=== PATIENT | male | born 1940 | race Caucasian/White ===

== ENCOUNTER 2017-11-22 08:24 | Outpatient (CLI) | payer MEDICARE ==
[~2017-11-22] VITALS: Ht 182.9 cm; Wt 90.0 kg
--- NOTE | ~2017-11-22 | OP ---
PATIENT NAME: NORRIS TIERNEY MEDICAL RECORD: [id number] :42 LOCATION:D.CAT ADMISSION DATE: SURGEON: BJ THAKUR MD DATE OF OPERATION: 11/22/2017 PROCEDURES: 1. PTCA with stent, left circumflex. 2. Intravascular ultrasound, left circumflex. 3. Left heart catheterization. 4. Selective coronary angiography. 5. Left ventriculogram. INDICATIONS: Angina and coronary artery disease. PROCEDURE IN DETAIL: After informed consent was obtained and after a detailed explanation of the risks, benefits as well as alternative therapies, the patient elected to proceed with angiogram and angioplasty. The right radial area was prepped and draped in normal sterile fashion. The right radial artery was cannulated via modified Seldinger technique with placement of 6-Albanian sheath. All catheters were exchanged through this sheath. FINDINGS: Left ventriculogram was performed in standard 30-degree LOCO view; reveals good cardiac wall motion throughout all segments, overall ejection fraction estimated at 60%. SELECTIVE CORONARY ANGIOGRAPHY: 1. Left main showed no significant angiographic disease. 2. Left anterior descending has previously placed stents. These are widely patent with no significant restenosis. No disease elsewise throughout the LAD or its branches. 3. Left circumflex has previously placed stent. Proximally, prior to this at the ostium, there is greater than 80% stenosis confirmed by intravascular ultrasound. 4. The right coronary has previously placed stents. There is 80% in-stent restenosis in the mid vessel. PTCA STENT OF THE LEFT CIRCUMFLEX: The stent used is a 3.5 x 8 mm [place]. Result was 0% residual stenosis. OVERALL IMPRESSION: Successful percutaneous transluminal coronary angioplasty with stent of the left circumflex ostium going from 80% initial stenosis to 0% residual. PLAN: Plan for PTCA stent of the RCA in the near future. TRANSINT:[id number] Voice Confirmation ID: [id number] DOCUMENT ID: [id number] OPERATIVE REPORT [id number] NORRIS TIERNEY JEFFREY MD at 1759 CC: [id number] DICTATION DATE: 11/22/17 1136 PREFITTER: 11/22/17 1332 DEP CLI 11/22/17 [place] [address]
--- NOTE | ~2017-11-22 | HEMODYNAMI ---
PATIENT:NORRIS TIERNEY MEDICAL RECORD: [id number] : 42 LOCATION:DBenCAT ADMISSION DATE: 11/22/17 Generatedon:11/22/201711:40 Patient name: NORRIS TIERNEY Patient #: [id number] SSN: : 1940 Date of study: 11/22/2017 Page: Of Hemodynamic Procedure Report Patient Data Patient Demographics Procedure consent was obtained First Name: NORRIS Gender: Male Last Name: KELSY : 1940 [facility] Initial: CASSIE Age: 77 year(s) Patient #: [id number] Race: Additional ID: [id number] Contact details [address]: [address] [place] [address] State: [place] City: [place] Zip code: [address] Past Medical History History of disease Date Diagnosis Comments CAD Allergies Allergen Reaction Date Comments Reported Other allergy 11/22/2017 Sulfa Admission Admission Data Admission Date: 11/22/2017 Admission Time: 8:24 Height (in.): 72 BSA: 2.13 (m2) Height (cm.): 182.88 BMI: 26.99 (kg/m2) Weight (lbs.): 199 Weight (kg.): 90.26 Procedure Procedure Types Cath Procedure Diagnostic Procedure [facility] w/Coronaries FFR/IVUS Intra-Coronary IVUS Initial PCI Procedure Coronary Stent Miscellaneous Procedures Moderate Sedation up to 15 minutes Procedure Description Procedure Date Procedure Date: 11/22/2017 Procedure Start Time: 11:19 Procedure End Time: 11:37 Procedure Staff Name Function Don Patel MD Performing Physician Jade Hidalgo RT Monitor Edna Cowan RT Scrub Phill Richard RN Nurse Procedure Data Cath Procedure Fluoroscopy Diagnostic fluoroscopy Total fluoroscopy Time: 5.8 time: 5.8 min min Diagnostic fluoroscopy Total fluoroscopy dose: 840 dose: 840 mGy mGy Contrast Material Contrast Material Type Amount (ml) Isovue 300 73 Entry Location Entry Primary Successful Side Size Upsize Upsize Entry Closure Loza ccessful Closure Location (Fr) 1 (Fr) 2 (Fr) Remarks Device Remarks Radial Right 6 Fr Mechanical tr band artery Short Compression Estimated blood loss: 10 ml Diagnostic catheters Device Type Used For End Catheter Placement DIAGNOSTIC [place] 110cm 5 Procedure Fr catheter ([id number]) DIAGNOSTIC [place] 110cm 5 Procedure Fr catheter ([id number]) Procedure Complications No complications Procedure Medications Medication Administration Route Dosage Oxygen NC 2 l/min Heparin Flush Bag added to field 2 bags (1000units/500ml NS) 0.9% NaCl I.V. 100 ml/hr Radial Cocktail added to field 1 syringe (Verapomil 2mg/Nitro 400mcg/Heparin 1500units) Fentanyl I.V. 100 mcg Versed I.V. 2 mg Fentanyl I.V. 100 mcg Versed I.V. 2 mg Radial Cocktail I.A. 1 syringe (Verapomil 2mg/Nitro 400mcg/Heparin 1500units) Heparin Bolus I.V. 4000 units Hemodynamics Rest BSA: 2.13 (m2) O2 Consumption: Estimated: 234.15 (ml/min) O2 Consumption indexed : Estimated:109.93 (ml/min/m) Heart Rate: 57 (bpm) Snapshots Pre Cath Intra NCS Post Cath Vital Signs Time Heart Resp SPO2 etCO2 NIBP (mmHg) Rhythm Pain Sedation Rate (ipm) (%) (mmHg) Status Level (bpm) 11:04:32 57 29 100 0 142/80(123) NSR 0 (11) 10(A) , No pain 11:08:46 58 16 99 0 151/79(138) NSR 0 (11) 10(A) , No pain 11:13:04 58 18 99 0 146/75(136) NSR 0 (11) 10(A) , No pain 11:17:21 64 18 100 0 148/77(132) NSR 0 (11) 10(A) , No pain 11:21:39 62 18 94 0 112/67(100) NSR 0 (11) 10(A) , No pain 11:25:47 60 16 95 0 113/67(89) NSR 0 (11) 9(A) , No pain 11:29:52 62 16 92 0 104/68(94) NSR 0 (11) 9(A) , No pain 11:33:56 66 17 94 0 102/64(90) NSR 0 (11) 9(A) , No pain 11:37:25 65 18 95 0 109/58(78) NSR 0 (11) 9(A) , No pain Medications Time Medication Route Dose Verified Delivered Reason Note s Effectiveness by by 11:05:19 Oxygen NC 2 l/min Don Pollock Per physician Amanda Richard RN 11:05:31 Heparin Flush added 2 bags Don Pollock used for Bag to Amanda Richard RN procedure (1000units/500ml field NS) 11:05:41 0.9% NaCl I.V. 100 Don Rodriguezy Per physician ml/hr Amanda Richard RN 11:05:49 Radial Cocktail added 1 Don Pollock used for (Verapomil to syringe Amanda Richard RN procedure 2mg/Nitro field 400mcg/Heparin 1500units) 11:18:51 Fentanyl I.V. 100 mcg Don Pollock for sedation Amanda Richard RN 11:18:57 Versed I.V. 2 mg Don Pollock for sedation Amanda Richard RN 11:23:01 Fentanyl I.V. 100 mcg Don Pollock for sedation Amanda Richard RN 11:23:05 Versed I.V. 2 mg Don Pollock for sedation Amanda Richard RN 11:24:48 Radial Cocktail I.A. 1 Don Ochoa for (Verapomil syringe Amanda Patel MD vasodilation 2mg/Nitro 400mcg/Heparin 1500units) 11:30:34 Heparin Bolus I.V. 4000 Don Pollock for units Amanda Richard RN anticoagulation Procedure Log Time Note 10:32:28 Phill Richard RN sent for patient. Start room use. 10:46:54 Patient Height : 72 inches 10:46:59 Patient Weight : 199 lbs 10:47:25 Diagnostic Cath status Elective 10:47:30 Time tracking: Regular hours 10:47:52 Plan of Care:Hemodynamics will remain stable., Cardiac rhythm will remain stable., Comfort level will be maintained., Respiratory function will remain adequate., Patient/ family verbilizes understanding of procedure., Procedure tolerated without complication., Recovers from procedure without complications.. 10:47:58 Patient received from Pre/Post Procedure Room to [facility] 2 Alert and oriented. Tansferred to table in Supine position. 10:55:43 Warm blankets applied, and luiz hugger turned on for patient comfort. 10:55:44 Correct patient and procedure confirmed by team. 10:55:45 Signed procedure consent form obtained from patient. 10:55:46 ECG and BP/O2 sat monitors applied to patient. 11:02:20 Vital chart was started 11:05:19 Oxygen 2 l/min NC was administered by Phill Richard RN; Per physician; 11:05:31 Heparin Flush Bag (1000units/500ml NS) 2 bags added to field was administered by Phill Richard RN; used for procedure; 11:05:41 0.9% NaCl 100 ml/hr I.V. was administered by Phill Richard RN; Per physician; 11:05:49 Radial Cocktail (Verapomil 2mg/Nitro 400mcg/Heparin 1500units) 1 syringe added to field was administered by Phill Richard RN; used for procedure; 11:07:18 Baseline sample Acquired. 11:07:22 Rhythm: sinus rhythm 11:07:24 Full Disclosure recording started 11:07:44 H&P Date Dictated: 11/05/2017 Within 30 days and on chart., H&P Addendum completed by physician on day of procedure. (MUST COMPLETE FOR ALL OUTPATIENTS). 11:07:54 Pre-procedure instructions explained to patient. 11:08:01 Family in waiting room. 11:08:04 Patient NPO since Midnight. 11:08:17 Patient allergic to Other allergySulfa 11:08:20 Is the patient allergic to Iodine/contrast media? No. 11:08:22 Was the patient premedicated? Yes 11:08:25 Is patient on blood thinner?Yes 11:08:28 ACC The patient was administered the following blood thiners within the last 24 hours: ACCPlavix 11:08:30 Patient diabetic? No. 11:08:39 Snore? Yes 11:08:41 Sleep apnea? No 11:08:43 Sticks out tongue? No 11:08:58 IV patent on arrival in left forearm with 0.9% NaCl at [facility]. 11:09:06 Lab results completed and on chart. 11:09:11 Right Radial & Right Groin area was prepped with chlora-prep and draped in sterile fashion 11:09:11 Alarms reviewed by R. N. 11:09:12 Sharps counted by scrub and verified by R.N. 11:09:13 Physician paged 11:09:26 Use device set Radial Dx or PCI 11:09:28 ACIST Syringe (14031) opened to sterile field. 11:09:29 Medline Cath Pack ([id number]) opened to sterile field. 11:09:29 Bag Decanter (2002S) opened to sterile field. 11:09:50 SHEATH 6FR Slender ([id number]) opened to sterile field. 11:09:54 DIAGNOSTIC WIRE .035 260cm J wire (042010) opened to sterile field. 11:09:55 ACIST Hand Control (68869) opened to sterile field. 11:09:56 ACIST Manifold (56040) opened to sterile field. 11:09:57 Tegaderm 4 x 4 (1626W) opened to sterile field. 11:09:57 MBrace Wrist Support ([id number]) opened to sterile field. 11:15:57 Physician arrived 11:15:58 --------ALL STOP TIME OUT------ 11:15:59 Final Timeout: patient, procedure, and site verified with staff and physician. All members of the team are in agreement. 11:16:01 Right Radial & Right Groin site verified by team. 11:16:08 Physical assessment completed. ASA score P 2 - A patient with mild systemic disease as per Don Patel MD. 11:16:12 Sedation plan: IV Moderate Sedation Medication:Versed, Fentanyl 11:18:18 Procedure started. 11:18:51 Fentanyl 100 mcg I.V. was administered by Phill Richard RN; for sedation; 11:18:57 Versed 2 mg I.V. was administered by Phill Richard RN; for sedation; 11:19:36 Local anesthetic to right radial artery with Lidocaine 2% by Don Patel MD.INITIAL ACCESS ONLY 11:21:47 A 6 Fr Short sheath was inserted into the Right Radial artery 11:22:58 A DIAGNOSTIC [place] 110cm 5 Fr catheter (801851) was advanced over the wire and used for Procedure. 11:23:01 Fentanyl 100 mcg I.V. was administered by Phill Richard RN; for sedation; 11:23:05 Versed 2 mg I.V. was administered by Phill Richard RN; for sedation; 11:24:19 GLIDE WIRE ANGLE 260cm (JD7208) opened to sterile field. 11:24:31 TORQUE DEVICE PLASTIC .038 ( TD01) opened to sterile field. 11:24:46 A DIAGNOSTIC [place] 110cm 5 Fr catheter (712871) was advanced over the wire and used for Procedure. 11:24:48 Radial Cocktail (Verapomil 2mg/Nitro 400mcg/Heparin 1500units) 1 syringe I.A. was administered by Don Patel MD; for vasodilation; 11:24:54 EF : 60 % 11:25:35 RCA angiography performed. 11:26:08 LCA angiography performed. 11:27:07 Catheter removed. 11:28:07 6 Fr XBLAD 3.5 guide catheter was inserted over the wire 11:28:23 ex support wire advanced. 11:28:52 CHOICE PT Extra Support 182cm wire ([id number]) opened to sterile field. 11:29:22 INFLATOR Merit BasixCompak (RV6930) opened to sterile field. 11:29:33 [place] IVUS Catheter (34749B) opened to sterile field. 11:30:34 Heparin Bolus 4000 units I.V. was administered by Phill Richard RN; for anticoagulation; 11:33:21 Inflation Number: 1 A SRIRAM RX 3.5 x 08 stent ([id number]) was prepped and advanced across the Prox CX. The stent was deployed at 17 MATTY for 0:10 (min:sec). 11:33:29 Wire removed. 11:33:32 Guide catheter removed. 11:33:44 TR BAND Standard (ISI32NEH) opened to sterile field. 11:34:06 Sheath removed intact; hemostasis achieved with Mechanical Compression to the Right Radial artery. 11:34:08 Procedure ended.(Physican Out) 11:35:15 Fluoroscopy time 05.80 minutes. 11:35:19 Fluoroscopy dose: 840 mGy 11:35:19 Flurop Dose total: 840 11:35:23 Contrast amount:Isovue 300 73ml. 11:35:25 Sharps counted by scrub and verified by R.N. 11:35:36 TR band inflated with 10cc of air. 11:35:37 Insertion/operative site no bleeding no hematoma. 11:35:43 Post Procedure Pulses reassessed and unchanged 11:35:47 Post-procedure physical assessment completed. ASA score P 2 - A patient with mild systemic disease as per Don Patel MD. 11:35:52 Post procedure rhythm: unchanged. 11:35:55 Estimated blood loss: 10 ml 11:35:57 Post procedure instruction explained to patient.Patient verbalizes understanding. 11:36:06 Procedure type changed to Cath procedure, Diagnostic procedure, LHC, LHC w/Coronaries, FFR/IVUS, Intra-Coronary IVUS Initial, PCI procedure, Coronary Stent, Miscellaneous Procedures, Moderate Sedation up to 15 minutes 11:36:23 Procedure and supply charges have been captured, reviewed, submitted and are correct. 11:37:48 Procedure Complication : No complications 11:37:51 Vital chart was stopped 11:37:51 See physician's report for complete and final results. 11:37:53 Report given to Pre/Post Procedure Room. 11:37:57 Patient transfered to Pre/Post Procedure Room with Stretcher. 11:37:59 Procedure ended. 11:37:59 Full Disclosure recording stopped 11:38:02 End room use (Document Last) 11:38:02 End room use (Document Last) 11:38:15 ACC-PCI Only Patient was given prescriptions, or instructed by Don Patel MD to start/continue the following medications upon discharge: Plavix Intervention Summary Intervention Notes Time ActionType Lesion and Equipment Used Action# Pressure Duration Attributes 11:33:21 Place stent Prox CX SRIRAM RX 3.5 x 1 17 00:10 08 stent ([id number]) Device Usage Item Name Manufacture Quantity Catalog Number Hospital Part Current M inimal Lot# / Charge Number Stock Stock Serial# Code ACIST Syringe Acist 1 36480 216916 379914 703355 2 0 (07445) Medical Systems Inc Medline Cath Cardinal 1 [id number] 546459 15296 711506 5 Pack Health ([id number]) Bag Decanter Microtek 1 911243 99026 848589 5 () Medical Inc. SHEATH 6FR Terumo 1 [id number] 422363 837893 101160 4 0 Slender ([id number]) DIAGNOSTIC St Ed 1 659689 774348 963356 061293 3 0 WIRE .035 260cm J wire (160591) ACIST Hand Acist 1 72081 961627 653426 933751 5 Control Medical (11419) Systems Inc ACIST Manifold Acist 1 88064 916548 550317 529271 5 (21331) Medical Systems Inc Tegaderm 4 x 4 3M 1 1626W 082497 188890 246711 5 (1626W) MBrace Wrist Advanced 1 140-0250-00 880719 52641 398227 5 Support Vascular ([id number]) Dynamics DIAGNOSTIC Terumo 2 40-8123 380177 974043 163867 5 [place] 110cm 5 Fr catheter (274463) GLIDE WIRE Terumo 1 ZM5649 913114 409927 159378 5 ANGLE 260cm (BK0617) TORQUE DEVICE [place] 1 TD01 297306 701254 752531 5 PLASTIC .038 ( Scientific TD01) CHOICE PT [place] 1 [id number] 690819 183512 133323 5 Extra Support Scientific 182cm wire ([id number]) INFLATOR Merit Merit 1 QJ1881 739761 964891 029047 1 5 [facility] (CF6640) [place]rape[place] 1 43851Y 102417 295695 854287 8 [place] IVUS Catheter (57444B) SRIRAM RX 3.5 x Medtronic 1 [id number] 943363 3412558 993869 5 [id number] 08 stent ([id number]) TR BAND Terumo 1 [id number] 104031 556714 340439 4 0 Standard ([id number]) Signature Audit [place] Stage Time Signature Unsigned Intra-Procedure 11/22/2017 Jade Hidalgo 11:40:16 AM RT(R) Signatures Monitor : Jade Hidalgo Signature : RT Date : Time : [facility] [address] [place] [address]
[~2017-11-22 08:24] MED LIST: BAYER CHEWABLE81 MG PO; CO Q-1030 MG PO; COZAAR50 MG PO; ECOTRIN325 MG PO; FINACEA GEL; FISH OIL 1,2001 CAP PO; HYDROCHLOROTHIA25 MG PO; HYDROCODON-ACE1 EAC7 PO; HYDROCODONE-APA1 TAB PO; LIPITOR80 MG PO; MILK THISTLE140 MG PO; MULTI-DAY VITAM1 TAB PO; NORCO 10/325 TA1 TA1 PO; NORITATE60 GM; ORACEA40 MG PO; PHOSLO667 MG; PLAVIX75 MG PO; PROTONIX20 MG PO; TOPROL XL50 MG PO; VITAMIN C250 MG PO; VITAMIN D2000 UNIT; VITAMIN D31000 UNI2 PO
[2017-11-22] MEDS ORDERED: NITROSTAT0.4 MG SL (09:08)
[2017-11-22] MEDS ORDERED: CO Q-1030 MG PO (09:11)
[2017-11-22] MEDS ORDERED: CITRACAL + D E1 EACH PO (09:12)
[2017-11-22 09:31] VITALS: BP 166/82; Ht 182.9 cm; Wt 90.0 kg
[2017-11-22 09:43] LABS: BASOPHILS 0.4 % (0-2); EOSINOPHILS 1.9 % (0-7); HEMATOCRIT 39.4 % (42.0-54.0); HEMOGLOBIN 13.5 g/dL (13.5-17.5); IMMATURE GRANULOCYTES 0.7 % (0-5); LYMPHOCYTES 27.8 % (15-50); MCH 32.8 pg (26.0-34.0); MCHC 34.3 g/dL (31.0-37.0); MCV 95.9 fL (80.0-100.0); MEAN PLATELET VOLUME 9.4 fL (7.4-10.4); MONOCYTES 9.3 % (2-11); NEUTROPHILS 59.9 % (40-80); RBC 4.11 10x6/uL (4.20-6.10); RDW 12.7 % (11.5-14.5); WBC 7.4 10x3/uL (4.8-10.8)
[2017-11-22 09:44] LABS: PLATELET COUNT 151 10x3/uL (130-400)
[2017-11-22 09:55] LABS: ANION GAP 12.2 mmol/L (8-16); CALCIUM 9.2 mg/dL (8.5-10.1); CARBON DIOXIDE 31.2 mmol/L (21.0-32.0); CREATININE - SERUM 1.1 mg/dL (0.6-1.3); POTASSIUM - SERUM 4.4 mmol/L (3.5-5.1)
== END 2017-11-22 15:30 | disposition home or self-care (01) ==
LOC: D.CATH 08:24
PROVIDERS: Internal Medicine Interventional Cardiology
DX: I25.119 Atherosclerotic heart disease of native coronary artery with unspecified angina pectoris (principal); I10 Essential (primary) hypertension; E78.5 Hyperlipidemia, unspecified; Z01.812 Encounter for preprocedural laboratory examination
CPT/HCPCS: 93458; 92978; C9600

== ENCOUNTER 2017-11-26 08:56 | Outpatient (CLI) | payer MEDICARE ==
[~2017-11-26] VITALS: Ht 182.9 cm; Wt 90.0 kg
--- NOTE | ~2017-11-26 | HEMODYNAMI ---
PATIENT:NORRIS TIERNEY MEDICAL RECORD: [id number] : 42 LOCATION:[facility] ADMISSION DATE: 11/26/17 Generatedon:11/26/201712:05 Patient name: NORRIS TIERNEY Patient #: [id number] : 1940 Date of study: 11/26/2017 Page: Of Hemodynamic Procedure Report Patient Data Patient Demographics Procedure consent was obtained First Name: NORRIS Gender: Male Last Name: KELSY : 1940 Middle Initial: CASSIE Age: 77 year(s) Patient #: [id number] Race: SSN: [id number] Additional ID: [id number] Contact details [address]: [address] [place] [address] State: [place] City: [place] Zip code: [address] Past Medical History History of disease Date Diagnosis Comments CAD Allergies Allergen Reaction Date Comments Reported Other allergy 11/22/2017 Sulfa Admission Admission Data Admission Date: 11/26/2017 Admission Time: 8:56 Arrival Date: 11/26/2017 Arrival Time: 11:30 Admit Source: Other Insurance Payor: Private health insurance Height (in.): 72 BSA: 2.13 (m2) Height (cm.): 182.88 BMI: 26.99 (kg/m2) Weight (lbs.): 199 Weight (kg.): 90.26 Lab Results Lab Result Date: 11/26/2017 Lab Result Time: 0:00 Biochemistry Name Units Result Min Max BUN mg/dl 14 --(--*-)-- 7 18 Creatinine mg/dl 0.9 --(-*--)-- 0.6 1.3 CBC Name Units Result Min Max Hemoglobin g/dl 14 --(*---)-- 13.5 17.5 Procedure Procedure Types Cath Procedure PCI Procedure Coronary Stent Coronary Stent Initial Miscellaneous Procedures Moderate Sedation up to 15 minutes Procedure Description Procedure Date Procedure Date: 11/26/2017 Procedure Start Time: 11:52 Procedure End Time: 12:05 Procedure Staff Name Function Don Patel MD Performing Physician Bobbi Gallo RT Monitor Edna Cowan RT Scrub Taylor Todd RN Nurse Phill Richard RN Carbonating Stone Cleaner Procedure Data Cath Procedure Fluoroscopy Diagnostic fluoroscopy Total fluoroscopy Time: 3 time: 3 min min Diagnostic fluoroscopy Total fluoroscopy dose: 206 dose: 206 mGy mGy Contrast Material Contrast Material Type Amount (ml) Isovue 300 36 Entry Location Entry Primary Successful Side Size Upsize Upsize Entry Closure Loza ccessful Closure Location (Fr) 1 (Fr) 2 (Fr) Remarks Device Remarks Radial Right 6 Fr Mechanical artery Short Compression Estimated blood loss: 10 ml Procedure Complications No complications Procedure Medications Medication Administration Route Dosage 0.9% NaCl I.V. 100 ml/hr Oxygen NC 2 l/min Lidocaine 2% added to field 20 Heparin Flush Bag added to field 2 bags (1000units/500ml NS) Radial Cocktail added to field 1 syringe (Verapomil 2mg/Nitro 400mcg/Heparin 1500units) Fentanyl I.V. 50 mcg Versed I.V. 1 mg Versed I.V. 1 mg Heparin Bolus I.V. 4000 units Fentanyl I.V. 50 mcg Fentanyl I.V. 100 mcg Hemodynamics Rest BSA: 2.13 (m2) HGB: 14 (g/dl) O2 Consumption: Estimated: 231.09 (ml/min) O2 Cons umption indexed: Estimated:108.49 (ml/min/m) Heart Rate: 53 (bpm) Snapshots Pre Cath Intra NCS Post Cath Vital Signs Time Heart Resp SPO2 etCO2 NIBP (mmHg) Rhythm Pain Sedation Rate (ipm) (%) (mmHg) Status Level (bpm) 11:39:10 58 15 100 0 129/69(105) NSR 0 (11) 10(A) , No pain 11:43:22 58 16 99 0 127/70(98) NSR 0 (11) 10(A) , No pain 11:47:32 56 16 98 0 117/74(88) NSR 0 (11) 10(A) , No pain 11:51:41 57 18 97 0 126/64(89) NSR 0 (11) 10(A) , No pain 11:55:56 57 16 98 1.5 99/57(73) NSR 0 (11) 9(A) , No pain 11:59:58 57 18 95 0 95/65(82) NSR 0 (11) 9(A) , No pain 12:04:46 59 18 96 2.2 118/67(91) NSR 0 (11) 10(A) , No pain Medications Time Medication Route Dose Verified Delivered Reason Note s Effectiveness by by 11:23:42 0.9% NaCl I.V. 100 Don Zaratey used for ml/hr Amanda Todd RN procedure 11:23:51 Oxygen NC 2 l/min Don Vazquez Per physician Amanda Todd RN 11:23:57 Lidocaine 2% added 20ml Donester Ochoa for local to vial Amanda Patel MD anesthetic field 11:24:03 Heparin Flush added 2 bags Don Ochoa used for Bag to Amanda Patel MD procedure (1000units/500ml field NS) 11:41:19 Radial Cocktail added 1 Donester Ochoa for (Verapomil to syringe Amanda Patel MD vasodilation 2mg/Nitro field 400mcg/Heparin 1500units) 11:51:17 Fentanyl I.V. 50 mcg Don Vazquez for sedation Amanda Todd RN 11:51:26 Versed I.V. 1 mg Don Berryfany for sedation Amanda Todd RN 11:54:15 Heparin Bolus I.V. 4000 Don Taylor for veri fied units Amanda Todd RN anticoagulation by 11:54:35 Versed I.V. 1 mg Don Berryfany for sedation Amanda Todd RN 11:54:51 Fentanyl I.V. 50 mcg Don Vazquez for sedation Amanda Todd RN 11:56:07 Fentanyl I.V. 100 mcg Don Berryfany for sedation Amanda Todd RN Procedure Log Time Note 11:20:02 Informed consent obtained and on chart 11:20:25 Patient Height : 72 inches 11:20:26 Patient Weight : 199 lbs 11:20:28 Admit Source: Other 11:20:33 Arrival Date: 11/26/2017 11:30:00 AM 11:20:39 Insurance Payor : Private health insurance 11:22:22 Lab Result : BUN 14 mg/dl 11:22:22 Lab Result : Hemoglobin 14 g/dl 11:22:22 Lab Result : Creatinine 0.9 mg/dl 11:22:25 Diagnostic Cath Status : Elective 11:23:00 Phill Richard RN sent for patient. Start room use. 11:23:01 Time tracking: Regular hours 11:23:05 Plan of Care:Hemodynamics will remain stable., Cardiac rhythm will remain stable., Comfort level will be maintained., Respiratory function will remain adequate., Patient/ family verbilizes understanding of procedure., Procedure tolerated without complication., Recovers from procedure without complications.. 11:23:42 0.9% NaCl 100 ml/hr I.V. was administered by Taylor Todd RN; used for procedure; 11:23:51 Oxygen 2 l/min NC was administered by Taylor Todd RN; Per physician; 11::57 Lidocaine 2% 20ml vial added to field was administered by Don Patel MD; for local anesthetic; 11:24:03 Heparin Flush Bag (1000units/500ml NS) 2 bags added to field was administered by Don Patel MD; used for procedure; 11:28:57 Patient received from Pre/Post Procedure Room to CCL 2 Alert and oriented. Tansferred to table in Supine position. 11:28:58 Warm blankets applied, and luiz hugger turned on for patient comfort. 11:28:58 Correct patient and procedure confirmed by team. 11:28:59 ECG and BP/O2 sat monitors applied to patient. 11:37:57 Vital chart was started 11:41:02 Rhythm: sinus bradycardia 11:41:03 Full Disclosure recording started 11:41:09 H&P Date Dictated: 11/26/2017 Within 30 days and on chart.. 11:41:10 Pre-procedure instructions explained to patient. 11:41:10 Pre-op teaching completed and patient verbalized understanding. 11:41:11 Family in waiting room. 11:41:13 Patient NPO since Midnight. 11:41:19 Radial Cocktail (Verapomil 2mg/Nitro 400mcg/Heparin 1500units) 1 syringe added to field was administered by Don Patel MD; for vasodilation; 11:41:20 Is the patient allergic to Iodine/contrast media? No. 11:41:21 Is patient on blood thinner?Yes 11:41:23 ACC The patient was administered the following blood thiners within the last 24 hours: ACCPlavix 11:41:25 Patient diabetic? No. 11:41:29 Previous problem with sedation/anesthesia? No ? 11:41:30 Snore? Yes 11:41:31 Sleep apnea? No 11:41:32 Deviated septum? No 11:41:32 Opens mouth fully? Yes 11:41:33 Sticks out tongue? Yes 11:41:36 Airway obstruction? No ? 11:41:39 Dentures? Yes OUT 11:41:42 Pre procedure: right dorsailis pedis pulse 2+ Normal; easily identifiable; not easily obliterated 11:41:44 Modified Toy's test Ulnar < 7 seconds 11:41:46 Patient pain scale 0/10 ?. 11:42:01 IV patent on arrival in left hand with 0.9% NaCl at [facility]. 11:42:04 Lab results completed and on chart. 11:42:10 Right Radial & Right Groin area was prepped with chlora-prep and draped in sterile fashion 11:42:11 Alarms reviewed by R. N. 11:42:11 Sharps counted by scrub and verified by R.N. 11:42:15 Use device set Radial Dx or PCI 11:42:16 ACIST Syringe (42009) opened to sterile field. 11:42:17 Medline Cath Pack ([id number]) opened to sterile field. 11:42:18 Bag Decanter (2002) opened to sterile field. 11:42:18 SHEATH 6FR Slender ([id number]) opened to sterile field. 11:42:20 DIAGNOSTIC WIRE .035 260cm J wire (542120) opened to sterile field. 11:42:20 ACIST Hand Control (29371) opened to sterile field. 11:42:21 ACIST Manifold (17107) opened to sterile field. 11:42:22 Tegaderm 4 x 4 (1626W) opened to sterile field. 11:42:23 MBrace Wrist Support ([id number]) opened to sterile field. 11:42:30 Use device set TAUTH PCI 11:43:11 Baseline sample Acquired. 11:43:15 Physician paged 11:44:58 Zero performed for pressure channel P1 11:50:46 Final Timeout: patient, procedure, and site verified with staff and physician. All members of the team are in agreement. 11:50:48 Right Radial & Right Groin site verified by team. 11:50:51 Physical assessment completed. ASA score P 2 - A patient with mild systemic disease as per Don Patel MD. 11:50:54 Sedation plan: IV Moderate Sedation Medication:Versed, Fentanyl 11:51:17 Fentanyl 50 mcg I.V. was administered by Taylor Todd RN; for sedation; 11:51:26 Versed 1 mg I.V. was administered by Taylor Todd RN; for sedation; 11:52:49 Procedure started. 11:52:57 Local anesthetic to right radial artery with Lidocaine 2% by Don Patel MD.INITIAL ACCESS ONLY 11:53:37 A 6 Fr Short sheath was inserted into the Right Radial artery 11:53:56 GUIDE 6FR AR 2.0 catheter ([id number]) opened to sterile field. 11:54:14 CHOICE PT Extra Support 182cm wire ([id number]) opened to sterile field. 11:54:15 Heparin Bolus 4000 units I.V. was administered by Taylor Todd RN; for anticoagulation; verified by 11:54:35 Versed 1 mg I.V. was administered by Taylor Todd RN; for sedation; 11:54:41 6 Fr AR 2.0 guide catheter was inserted over the wire 11:54:51 Fentanyl 50 mcg I.V. was administered by Taylor Todd RN; for sedation; 11:55:38 GLIDE WIRE ANGLE 260cm (VD4187) opened to sterile field. 11:56:02 [place] wire advanced. 11:56:07 Fentanyl 100 mcg I.V. was administered by Taylor Todd RN; for sedation; 11:56:47 Wire removed. 11:57:49 Choice PT ES wire advanced. 11:59:32 Inflation Number: 1 A SRIRAM RX 4.0 x 22 stent ([id number]) was prepped and advanced across the Mid RCA. The stent was deployed at 21 MATTY for 0:12 (min:sec). 11:59:54 Inflation number: 2 The stent balloon was then re-inflated across the Mid RCA to 19 MATTY for 0:07 (min:sec). 12:00:26 Stent catheter was removed intact over wire. 12:00:27 Wire removed. 12:00:28 Guide catheter removed. 12:00:40 Sheath removed intact; hemostasis achieved with Mechanical Compression to the Right Radial artery. 12:00:43 Procedure ended.(Physican Out) 12:00:51 Fluoroscopy time 03.00 minutes. 12:00:54 Flurop Dose total: 206 12:00:54 Fluoroscopy dose: 206 mGy 12:00:57 Contrast amount:Isovue 300 36ml. 12:01:01 Sharps counted by scrub and verified by R.N. 12:01:02 Insertion/operative site no bleeding no hematoma. 12:01:11 Post right radial artery:stable, clean and dry 12:01:13 Post Procedure Pulses reassessed and unchanged 12:01:15 Post-procedure physical assessment completed. ASA score P 2 - A patient with mild systemic disease as per Don Patel MD. 12:01:17 Post procedure rhythm: unchanged. 12:01:21 Estimated blood loss: 10 ml 12:01:22 Post procedure instruction explained to patient.Patient verbalizes understanding. 12:01:22 Patient needs reinforcement of post procedure teaching. 12:01:39 Procedure type changed to Cath procedure, PCI procedure, Coronary Stent, Coronary Stent Initial, Miscellaneous Procedures, Moderate Sedation up to 15 minutes 12:01:44 Procedure Complication : No complications 12:01:46 See physician's report for complete and final results. 12:01:56 TR BAND Standard ([id number]) opened to sterile field. 12:02:17 INFLATOR Merit BasixCompak (SD6599) opened to sterile field. 12:03:35 Procedure and supply charges have been captured, reviewed, submitted and are correct. 12:04:46 TR band inflated with 10cc of air. 12:04:50 Vital chart was stopped 12:04:52 Report given to Pre/Post Procedure Room. 12:04:54 Patient transfered to Pre/Post Procedure Room with Stretcher. 12:05:02 Procedure ended. 12:05:02 Full Disclosure recording stopped 12:05:07 End room use (Document Last) Intervention Summary Intervention Notes Time ActionType Lesion and Equipment Used Action# Pressure Duration Attributes 11:59:32 Place stent Mid RCA SRIRAM RX 4.0 x 1 21 00:12 22 stent ([id number]) 11:59:54 Reinflate Mid RCA RSIRAM RX 4.0 x 2 19 00:07 stent 22 stent balloon ([id number]) Device Usage Item Name Manufacture Quantity Catalog Number Hospital Part Current M inimal Lot# / Charge Number Stock Stock Serial# Code ACIST Syringe Acist 1 24565 215389 390081 142273 2 0 (41660) Medical Systems Inc Medline Cath Cardinal 1 [id number] 864728 67675 592537 5 Pack Health ([id number]) Bag Decanter Microtek 1 2001S 035004 29999 817616 5 () Medical Inc. SHEATH 6FR Terumo 1 [id number] 556893 799586 533509 4 0 Slender ([id number]) DIAGNOSTIC St Ed 1 611685 969695 742528 707353 3 0 WIRE .035 260cm J wire (752184) ACIST Hand Acist 1 69154 344377 719799 401609 5 Control Medical (27416) Systems Inc ACIST Manifold Acist 1 90062 621669 605051 600056 5 (59497) Medical Systems Inc Tegaderm 4 x 4 3M 1 1626W 735474 074994 574679 5 (1626W) MBrace Wrist Advanced 1 140-0250-00 498395 49734 059242 5 Support Vascular ([id number]) Dynamics GUIDE 6FR AR Medtronic 1 [id number] 690350 76159 489714 1 2.0 catheter ([id number]) CHOICE PT [place] 1 [id number] 662685 570751 806088 5 Extra Support Scientific 182cm wire ([id number]) GLIDE WIRE Terumo 1 HK6428 386883 475236 802266 5 ANGLE 260cm (AY4251) SRIRAM RX 4.0 x Medtronic 1 [id number] 479474 0299430 351207 5 [id number] 22 stent ([id number]) TR BAND Terumo 1 [id number] 710509 755987 908142 4 0 Standard ([id number]) INFLATOR Merit Merit 1 [id number] 729307 446653 848687 1 5 [employer] [facility] ([id number]) Signature Audit [place] Stage Time Signature Unsigned Intra-Procedure 11/26/2017 Bobbi 12:05:18 PM Counts RT(R) Signatures Monitor : Bobbi Signature : Counts RT Date : Time : [place] [id number] [place] [address]
--- NOTE | ~2017-11-26 | OP ---
PATIENT NAME: NORRIS TIERNEY MEDICAL RECORD: [id number] :42 LOCATION:[facility] ADMISSION DATE: SURGEON: BJ THAKUR MD DATE OF OPERATION: 11/26/2017 PROCEDURES: 1. PTCA stent to RCA. 2. Selective coronary angiography. INDICATION: Angina and coronary artery disease. PROCEDURE IN DETAIL: After informed consent was obtained and after detailed explanation of risks, benefits as well as alternative therapies, the patient elected to proceed with angiogram and angioplasty. The right radial area was prepped and draped in normal sterile fashion. The right radial artery was cannulated via modified Seldinger technique with placement of 6-[place] sheath. All catheters exchanged through this sheath. FINDINGS: The right coronary artery has 80% in-stent restenosis in the mid vessel. This was addressed with a 4.0 x 22 mm Joce stent taken to 21 atmospheres. Result was 0% residual stenosis. OVERALL IMPRESSION: Successful percutaneous transluminal coronary angioplasty stent of the right coronary artery going from 80% initial stenosis to 0% residual. TRANSINT:[id number] Voice Confirmation ID: [id number] DOCUMENT ID: [id number] BJ THAKUR MD at 1800 CC: [id number] DICTATION DATE: 11/26/17 1203 PROCESS TECH: 11/26/17 1303 DEP CLI 11/26/[address] [id number]
[~2017-11-26 08:56] MED LIST changes: +CITRACAL + D E1 EACH PO; +NITROSTAT0.4 MG SL
[2017-11-26 10:16] VITALS: BP 141/70; Ht 182.9 cm; Wt 90.0 kg
[2017-11-26 10:16] LABS: BASOPHILS 0.2 % (0-2); EOSINOPHILS 1.5 % (0-7); HEMATOCRIT 39.8 % (42.0-54.0); IMMATURE GRANULOCYTES 0.7 % (0-5); LYMPHOCYTES 18.6 % (15-50); MCH 33.6 pg (26.0-34.0); MCHC 35.2 g/dL (31.0-37.0); MCV 95.4 fL (80.0-100.0); MEAN PLATELET VOLUME 9.3 fL (7.4-10.4); MONOCYTES 12.5 % (2-11); NEUTROPHILS 66.5 % (40-80); PLATELET COUNT 150 10x3/uL (130-400); RBC 4.17 10x6/uL (4.20-6.10); RDW 12.8 % (11.5-14.5); WBC 8.7 10x3/uL (4.8-10.8)
[2017-11-26 10:24] LABS: CALC OSMOLALITY 281 mosm/kg (275-300); CALCIUM 9.1 mg/dL (8.5-10.1); CARBON DIOXIDE 29.3 mmol/L (21.0-32.0); CHLORIDE - SERUM 103 mmol/L (98-107); CREATININE - SERUM 0.9 mg/dL (0.6-1.3); GLUCOSE 99 mg/dL (74-106); POTASSIUM - SERUM 4.2 mmol/L (3.5-5.1); SODIUM 141 mmol/L (136-145); UREA NITROGEN 14 mg/dL (7-18); eGFR NON AFRICAN AMERICAN 87 mL/min (90-120)
== END 2017-11-26 16:00 | disposition home or self-care (01) ==
LOC: D.CATH 08:56
PROVIDERS: Internal Medicine Interventional Cardiology
DX: I25.119 Atherosclerotic heart disease of native coronary artery with unspecified angina pectoris (principal); T82.855A Stenosis of coronary artery stent, initial encounter; Z01.812 Encounter for preprocedural laboratory examination

== ENCOUNTER 2018-06-27 08:59 | Outpatient (CLI) | payer MEDICARE ==
[~2018-06-27] VITALS: Ht 182.9 cm; Wt 91.8 kg
--- NOTE | ~2018-06-27 | HEMODYNAMI ---
PATIENT:NORRIS TIERNEY MEDICAL RECORD: [id number] : 42 LOCATION:[facility] ADMISSION DATE: 06/27/18 Generatedon:06/27/201813:14 Patient name: NORRIS TIERNEY Patient #: [id number] : 1940 Date of study: 06/27/2018 Page: Of Hemodynamic Procedure Report Patient Data Patient Demographics Procedure consent was obtained First Name: NORRIS Gender: Male Last Name: KELSY : 1940 Middle Initial: CASSIE Age: 78 year(s) Patient #: [id number] Race: SSN: [id number] Additional ID: [id number] Contact details [address]: [address] [place] [address] State: [place] City: [place] Zip code: [address] Past Medical History History of disease Date Diagnosis Comments CAD Allergies Allergen Reaction Date Comments Reported Other allergy 11/22/2017 Sulfa Sulfa drugs 06/27/2018 Admission Admission Data Admission Date: 06/27/2018 Admission Time: 8:59 Height (in.): 6 BSA: 0.36 (m2) Height (cm.): 15.24 BMI: 4159.83 (kg/m2) Weight (lbs.): 213 Weight (kg.): 96.62 Lab Results Lab Result Date: 06/27/2018 Lab Result Time: 0:00 Biochemistry Name Units Result Min Max BUN mg/dl 15 --(--*-)-- 7 18 Creatinine mg/dl 0.8 --(-*--)-- 0.6 1.3 CBC Name Units Result Min Max Hemoglobin g/dl 13.2 -*(----)-- 13.5 17.5 Procedure Procedure Types Cath Procedure Diagnostic Procedure LHC LHC w/Coronaries Procedure Description Procedure Date Procedure Date: 06/27/2018 Procedure Start Time: 13:03 Procedure End Time: 13:14 Procedure Staff Name Function Don Patel MD Performing Physician Bridgett Brantley RT Monitor Bobbi Gallo RT Scrub Phill Richard RN Nurse Cassie Guthrie RT Wheat Combine Driver Procedure Data Cath Procedure Fluoroscopy Diagnostic fluoroscopy Total fluoroscopy Time: 1.7 time: 1.7 min min Diagnostic fluoroscopy Total fluoroscopy dose: 629 dose: 629 mGy mGy Contrast Material Contrast Material Type Amount (ml) Isovue 300 58 Entry Location Entry Primary Successful Side Size Upsize Upsize Entry Closure Loza ccessful Closure Location (Fr) 1 (Fr) 2 (Fr) Remarks Device Remarks Radial Right 6 Fr Mechanical artery Short Compression Estimated blood loss: 5 ml Diagnostic catheters Device Type Used For End Catheter Placement DIAGNOSTIC [place] 110cm 5 Procedure Fr catheter ([id number]) Procedure Complications No complications Procedure Medications Medication Administration Route Dosage Oxygen etCO2 Nasal cannula 2 l/min Heparin Flush Bag added to field 2 bags (1000units/500ml NS) 0.9% NaCl I.V. 100 ml/hr Radial Cocktail added to field 1 syringe (Verapomil 2mg/Nitro 400mcg/Heparin 1500units) Fentanyl I.V. 50 mcg Versed I.V. 1 mg Fentanyl I.V. 50 mcg Versed I.V. 1 mg Fentanyl I.V. 50 mcg Versed I.V. 1 mg Radial Cocktail I.A. 1 syringe (Verapomil 2mg/Nitro 400mcg/Heparin 1500units) Fentanyl I.V. 50 mcg Versed I.V. 1 mg Hemodynamics Rest BSA: 0.36 (m2) HGB: 13.2 (g/dl) O2 Consumption: Estimated: 39.81 (ml/min) O2 Con sumption indexed: Estimated:110.58 (ml/min/m) Heart Rate: 59 (bpm) Snapshots Pre Cath Intra NCS Post Cath Vital Signs Time Heart Resp SPO2 etCO2 NIBP (mmHg) Rhythm Pain Sedation Rate (ipm) (%) (mmHg) Status Level (bpm) 12:32:46 55 16 97 0 151/75(128) NSR 0 (11) 10(A) , No pain 12:37:27 53 16 96 0 151/77(129) NSR 0 (11) 10(A) , No pain 12:42:07 59 17 95 35.3 133/78(104) NSR 0 (11) 10(A) , No pain 12:46:46 59 16 98 33.8 145/75(109) NSR 0 (11) 10(A) , No pain 12:51:24 62 16 92 33.5 125/67(105) NSR 0 (11) 10(A) , No pain 12:56:03 57 16 93 32.7 123/67(89) NSR 0 (11) 10(A) , No pain 13:00:39 53 16 97 30.8 126/69(105) NSR 0 (11) 10(A) , No pain 13:05:16 60 16 97 6 119/74(89) NSR 0 (11) 9(A) , No pain 13:09:54 64 17 88 24 97/60(84) NSR 0 (11) 9(A) , No pain 13:13:05 64 10 90 19.5 108/65(87) NSR 0 (11) 10(A) , No pain Medications Time Medication Route Dose Verified Delivered Reason Notes Effectiveness by by 12:37:26 Oxygen etCO2 2 l/min Don Pollock Per Nasal Amanda Richard RN physician cannula 12:37:33 Heparin Flush added 2 bags Don Phill used for Bag to Amanda Richard RN procedure (1000units/500ml field NS) 12:37:43 0.9% NaCl I.V. 100 Don Phill Per ml/hr Amanda Richard RN physician 12:37:54 Radial Cocktail added 1 Don Phill used for (Verapomil to syringe Amanda Richard RN procedure 2mg/Nitro field 400mcg/Heparin 1500units) 12:58:43 Fentanyl I.V. 50 mcg Don Phill for sedation Amanda Richard RN 12:58:50 Versed I.V. 1 mg Don Phill for sedation Amanda Richard RN 13:01:06 Fentanyl I.V. 50 mcg Don Phill for sedation Amanda Richard RN 13:01:11 Versed I.V. 1 mg Don Phill for sedation Amanda Richard RN 13:05:06 Fentanyl I.V. 50 mcg Don Phill for sedation Amanda Richard RN 13:05:10 Versed I.V. 1 mg Don Phill for sedation Amanda Richard RN 13:05:22 Radial Cocktail I.A. 1 Don Ochoa for (Verapomil syringe Amanda Patel MD vasodilation 2mg/Nitro 400mcg/Heparin 1500units) 13:08:27 Fentanyl I.V. 50 mcg Don Pollock for sedation Amanda Richard RN 13:08:30 Versed I.V. 1 mg Don Pollock for sedation Amanda Richard RN Procedure Log Time Note 11:34:09 Time tracking: Regular hours (M-F 7:00 - 5:00) 11:34:12 Plan of Care:Hemodynamics will remain stable., Cardiac rhythm will remain stable., Comfort level will be maintained., Respiratory function will remain adequate., Patient/ family verbilizes understanding of procedure., Procedure tolerated without complication., Recovers from procedure without complications.. 11:34:13 Signed procedure consent form obtained from patient. 11:36:34 H&P Date Dictated: 06/02/2018 Within 30 days and on chart., H&P Addendum completed by physician on day of procedure. (MUST COMPLETE FOR ALL OUTPATIENTS). 11:36:42 Patient allergic to Sulfa drugs 11:38:59 Lab Result : BUN 15 mg/dl 11:38:59 Lab Result : Hemoglobin 13.2 g/dl 11:38:59 Lab Result : Creatinine 0.8 mg/dl 12:03:59 Cassie DRAKE(R) sent for patient. Start room use. 12:05:20 Patient Weight : 213 lbs 12:05:24 Patient Height : 6 inches 12:25:15 Patient received from Pre/Post Procedure Room to CCL 1 Alert and oriented. Tansferred to table in Supine position. 12:25:17 Warm blankets applied, and luiz hugger turned on for patient comfort. 12:25:17 Correct patient and procedure confirmed by team. 12:25:18 ECG and BP/O2 sat monitors applied to patient. 12:25:19 Full Disclosure recording started 12:31:57 Vital chart was started 12:37:26 Oxygen 2 l/min etCO2 Nasal cannula was administered by Phill Richard RN; Per physician; 12:37:33 Heparin Flush Bag (1000units/500ml NS) 2 bags added to field was administered by Phill Richard RN; used for procedure; 12:37:43 0.9% NaCl 100 ml/hr I.V. was administered by Phill Richard RN; Per physician; 12:37:54 Radial Cocktail (Verapomil 2mg/Nitro 400mcg/Heparin 1500units) 1 syringe added to field was administered by Phill Richard RN; used for procedure; 12:37:54 Pre-procedure instructions explained to patient. 12:37:55 Pre-op teaching completed and patient verbalized understanding. 12:37:57 Family in patients room. 12:37:59 Patient NPO since Midnight. 12:38:00 Is the patient allergic to Iodine/contrast media? No. 12:38:05 Is patient on blood thinner?Unknown 12:38:07 Patient diabetic? No. 12:38:11 Previous problem with sedation/anesthesia? No ? 12:38:14 Snore? Yes 12:38:15 Sleep apnea? No 12:38:17 Deviated septum? No 12:38:23 Opens mouth fully? Yes 12:38:24 Sticks out tongue? Yes 12:38:28 Airway obstruction? No ? 12:38:41 Dentures? Yes OUT 12:38:44 Modified Toy's test Ulnar < 7 seconds 12:38:47 Patient pain scale 0/10 ?. 12:38:50 IV patent on arrival in left hand with 0.9% NaCl at [facility]. 12:39:13 Lab results completed and on chart. 12:39:15 Right Radial & Right Groin area was prepped with chlora-prep and draped in sterile fashion 12:39:16 Alarms reviewed by R. N. 12:39:17 Sharps counted by scrub and verified by R.N. 12:44:10 Use device set Radial Dx or PCI 12:44:11 ACIST Syringe (76022) opened to sterile field. 12:44:12 Bag Decanter () opened to sterile field. 12:44:13 ACIST Hand Control (88519) opened to sterile field. 12:44:14 ACIST Manifold (54075) opened to sterile field. 12:44:15 Tegaderm 4 x 4 (1626W) opened to sterile field. 12:44:18 Medline Cath Pack ([id number]) opened to sterile field. 12:44:18 DIAGNOSTIC WIRE .035 260cm J wire (942555) opened to sterile field. 12:44:19 SHEATH 6Fr Prelude Radial ([id number]) opened to sterile field. 12::56 Zero performed for pressure channel P1 12:45:06 Baseline sample Acquired. 12:45:12 Rhythm: sinus bradycardia 12:56:30 --------ALL STOP TIME OUT------ 12:56:30 Final Timeout: patient, procedure, and site verified with staff and physician. All members of the team are in agreement. 12:56:32 Right Radial & Right Groin site verified by team. 12:56:39 Physical assessment completed. ASA score P 2 - A patient with mild systemic disease as per Don Patel MD. 12:56:42 Sedation plan: IV Moderate Sedation Medication:Versed, Fentanyl 12:58:43 Fentanyl 50 mcg I.V. was administered by Phill Richard RN; for sedation; 12:58:50 Versed 1 mg I.V. was administered by Phill Richard RN; for sedation; 13:01:06 Fentanyl 50 mcg I.V. was administered by Phill Richard RN; for sedation; 13:01:11 Versed 1 mg I.V. was administered by Phill Richard RN; for sedation; 13:02:54 Procedure started. 13:03:18 Local anesthetic to right radial artery with Lidocaine 2% by Don Patel MD.INITIAL ACCESS ONLY 13:04:52 A 6 Fr Short sheath was inserted into the Right Radial artery 13:05:06 Fentanyl 50 mcg I.V. was administered by Phill Richard RN; for sedation; 13:05:10 Versed 1 mg I.V. was administered by Phill Richard RN; for sedation; 13:05:14 A DIAGNOSTIC [place] 110cm 5 Fr catheter (003886) was advanced over the wire and used for Procedure. 13:05:22 Radial Cocktail (Verapomil 2mg/Nitro 400mcg/Heparin 1500units) 1 syringe I.A. was administered by Don Patel MD; for vasodilation; 13:06:43 GLIDE WIRE ANGLE 260cm ([id number]) opened to sterile field. 13:07:15 LV gram done using LOCO 13::39 Injector settings: Ml/sec: 7, Volume: 15, 13:07:58 EF : 60 % 13:08:27 Fentanyl 50 mcg I.V. was administered by Phill Richard RN; for sedation; 13:08:30 Versed 1 mg I.V. was administered by Phill Richard RN; for sedation; 13:09:24 LCA angiography performed. 13:09:46 RCA angiography performed. 13:10:11 Catheter exchanged over wire. 13:10:58 Procedure ended.(Physican Out) 13:11:09 TR BAND Standard ([id number]) opened to sterile field. 13:11:19 Sheath removed intact; hemostasis achieved with Mechanical Compression to the Right Radial artery. 13:11:50 Fluoroscopy time 01.70 minutes. 13:11:54 Fluoroscopy dose: 629 mGy 13:11:54 Flurop Dose total: 629 13:11:59 Contrast amount:Isovue 300 58ml. 13:12:01 Sharps counted by scrub and verified by R.N. 13:12:23 TR band inflated with 10cc of air. 13:13:09 Post-procedure physical assessment completed. ASA score P 2 - A patient with mild systemic disease as per Don Patel MD. 13:13:14 Post procedure rhythm: sinus rhythm 13:13:15 Estimated blood loss: 5 ml 13:13:16 Post procedure instruction explained to patient.Patient verbalizes understanding. 13:13:17 Patient needs reinforcement of post procedure teaching. 13:13:59 Procedure and supply charges have been captured, reviewed, submitted and are correct. 13:14:01 Procedure Complication : No complications 13:14:03 Vital chart was stopped 13:14:05 Report given to Pre/Post Procedure Room. 13:14:07 Patient transfered to Pre/Post Procedure Room with Bed. 13:14:09 Procedure ended. 13:14:09 Full Disclosure recording stopped 13:14:12 End room use (Document Last) Device Usage Item Name Manufacture Quantity Catalog Number Hospital Part Current M inimal Lot# / Charge Number Stock Stock Serial# Code ACIST Syringe Acist 1 43873 996148 971733 624356 2 0 (54659) [employer] Bag Decanter Microtek 1 146558 92296 624233 5 () [employer] Inc[employer] ACIST Hand Acist 1 85554 061695 908038 859910 5 Control (65903) [employer] ACIST Manifold Acist 1 62686 000645 995093 818767 5 (11222) [employer] Tegaderm 4 x 4 3M 1 1626W 998025 862155 284355 5 (1626W) Medline Cath Cardinal 1 [id number] 992247 04578 166728 5 [facility] ([id number]) DIAGNOSTIC WIRE St Ed 1 129971 546265 018511 869526 3 0 .035 260cm J wire (823103) SHEATH 6Fr Merit 1 [id number] 493264 237159 103616 5 Prelude Radial Medical ([id number]) DIAGNOSTIC Terumo 1 40-0741 783691 262791 889668 5 [place] 110cm 5 Fr catheter (969328) GLIDE WIRE Terumo 1 [id number] 805494 192635 988836 5 ANGLE 260cm (VK8995) TR BAND Terumo 1 [id number] 173049 169640 375600 4 0 Standard ([id number]) Signature Audit Bryan Stage Time Signature Unsigned Intra-Procedure 06/27/2018 Bridgett Brantley 1:14:51 PM RT(R) Signatures Monitor : Bridgett Brantley Signature : RT Date : Time : [address] [address]
--- NOTE | ~2018-06-27 | OP ---
PATIENT NAME: NORRIS TIERNEY MEDICAL RECORD: [id number] :42 LOCATION:[facility] ADMISSION DATE: SURGEON: BJ THAKUR MD DATE OF OPERATION: 06/27/2018 PROCEDURES: 1. Left heart catheterization. 2. Selective coronary angiography. 3. Left ventriculogram. INDICATION: Angina and coronary artery disease. PROCEDURE IN DETAIL: After informed consent was obtained and after a detailed description of the risks, benefits as well as alternative therapies, the patient elected to proceed with angiogram and heart catheterization. The right radial area was prepped and draped in normal sterile fashion. Right radial artery was cannulated via modified Seldinger technique with placement of 5-Gambian sheath. Catheter was exchanged through this sheath. FINDINGS: Left ventriculogram was performed in standard 30-degree LOCO view, reveals good cardiac wall motion throughout all segments. Overall ejection fraction estimated 60%. SELECTIVE CORONARY ANGIOGRAPHY: 1. Left main has no significant angiographic disease. 2. Left anterior descending has previously placed stents in the LAD and LAD diagonal. These are widely patent with no significant restenosis. No disease elsewise at the LAD or diagonal system. 3. 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 This is unchanged from previous angiography. 4. The right coronary has previously placed stents, these are widely patent with no significant restenosis. No disease elsewise. OVERALL IMPRESSION: Wide patency of the previously placed stents in the left anterior descending and right coronary artery. Chronic total occlusion of the circumflex, first obtuse marginal, unchanged from previous angiography. Continue medical management of the coronary artery disease and cardiac risk factors. TRANSINT:[id number] Voice Confirmation ID: [id number] DOCUMENT ID: [id number] BJ THAKUR MD at 1843 CC: [id number] DICTATION DATE: 06/27/18 1315 APPLIED STATISTICIAN: 06/27/18 1330 DEP CLI 06/27/18 [place] [id number]
[2018-06-27] MEDS ORDERED: METOPROLOL TART50 MG PO (10:10)
[2018-06-27 10:18] VITALS: BP 146/74; Ht 182.9 cm; Wt 91.8 kg
[2018-06-27 10:47] LABS: BASOPHILS 0.3 % (0-2); EOSINOPHILS 2.4 % (0-7); HEMATOCRIT 37.3 % (42.0-54.0); HEMOGLOBIN 13.2 g/dL (13.5-17.5); IMMATURE GRANULOCYTES 0.3 % (0-5); LYMPHOCYTES 24.9 % (15-50); MCH 32.9 pg (26.0-34.0); MCHC 35.4 g/dL (31.0-37.0); MEAN PLATELET VOLUME 9.6 fL (7.4-10.4); MONOCYTES 11.2 % (2-11); NEUTROPHILS 60.9 % (40-80); PLATELET COUNT 162 10x3/uL (130-400); RBC 4.01 10x6/uL (4.20-6.10); RDW 12.7 % (11.5-14.5); WBC 7.1 10x3/uL (4.8-10.8)
[2018-06-27 10:57] LABS: CALC OSMOLALITY 278 mosm/kg (275-300); CALCIUM 8.2 mg/dL (8.5-10.1); CARBON DIOXIDE 30.4 mmol/L (21.0-32.0); CHLORIDE - SERUM 104 mmol/L (98-107); CREATININE - SERUM 0.8 mg/dL (0.6-1.3); GLUCOSE 99 mg/dL (74-106); POTASSIUM - SERUM 4.6 mmol/L (3.5-5.1); SODIUM 139 mmol/L (136-145); UREA NITROGEN 15 mg/dL (7-18); eGFR NON AFRICAN AMERICAN > 90 mL/min (90-120)
== END 2018-06-27 15:20 | disposition home or self-care (01) ==
LOC: D.CATH 08:59
PROVIDERS: Internal Medicine Interventional Cardiology
DX: I25.119 Atherosclerotic heart disease of native coronary artery with unspecified angina pectoris (principal); I25.82 Chronic total occlusion of coronary artery; Z95.5 Presence of coronary angioplasty implant and graft; Z01.812 Encounter for preprocedural laboratory examination